=== PATIENT | male | born 1985 | race Caucasian/White ===

== ENCOUNTER 2017-07-10 23:31 | Inpatient (IN) | payer OTHER ==
[~2017-07-10] VITALS: Ht 175.3 cm; Wt 89.3 kg
[~2017-07-10 23:31] MED LIST: ADDERALL20 MG PO; ANTABUSE500 MG PO; PROZAC10 MG PO
[2017-07-11 00:26] LABS: HEMATOCRIT 46.1 % (38.0-50.0); MCH 32.2 PG (29.0-34.0); MCHC 34.9 G/DL (30.0-36.0); MCV 92.2 FL (86-99); PLATELET COUNT 209 K/uL (156-360); RBC DIS.WIDTH-CV 11.9 % (11.8-14.6); RBC DIS.WIDTH-SD 40.1 % (39-53); WHITE BLOOD COUNT 5.3 K/uL (4.1-10.2)
[2017-07-11 00:27] LABS: ADD MIUA? NO; BILIRUBIN NEGATIVE; BLOOD NEGATIVE; COLOR STRAW ((YELLOW)); GLUCOSE (STRIP) NEGATIVE; KETONES NEGATIVE; LEUKOCYTES NEGATIVE; NITRITE NEGATIVE; PROTEIN (STRIP) NEGATIVE; SPECIFIC GRAVITY 1.009 (1.000-1.030); UCUL ADDED? NO; UROBILINOGEN 0.2 MG/DL (0.2-1.0)
[2017-07-11 00:36] LABS: AMPHETAMINE NEGATIVE (500 ng/mL); BARBITURATES NEGATIVE (200 ng/mL); BENZODIAZEPINES NEGATIVE (150 ng/mL); COCAINE NEGATIVE (150 ng/mL); INTERNAL CONTROLS VALID? YES; METHADONE NEGATIVE (200 ng/mL); METHAMPHETAMINE NEGATIVE (500 ng/mL); OPIATES (MORPHINE) NEGATIVE (100 ng/mL); OXYCODONE NEGATIVE (100 ng/mL); PHENCYCLIDINE NEGATIVE (25 ng/mL); PROPOXYPHENE NEGATIVE (300 ng/mL); THC CANNABINOIDS NEGATIVE (50 ng/mL); TRICYCLIC ANTIDEPRESSANTS NEGATIVE (300 ng/mL)
[2017-07-11 00:36] LABS: CHLORIDE 110 mEq/L (99-109); POTASSIUM 4.4 mEq/L (3.7-5.4); SODIUM 143 mEq/L (136-147)
[2017-07-11 00:38] LABS: GLUCOSE 97 mg/dL (70-99)
[2017-07-11 00:39] LABS: ANION GAP 11 MEQ/L (2-14)
[2017-07-11 00:41] LABS: GFR ESTIMATE (CALCULATED) > 59 mL/min/; SERUM ETHYL ALCOHOL 176 mg/dL
[2017-07-11 00:42] LABS: UREA NITROGEN (BUN) 13 mg/dL (9-23)
[2017-07-11 08:15] VITALS: BP 125/68
[2017-07-11 08:17] VITALS: BP 125/68
[2017-07-11 17:57] VITALS: BP 113/56
[2017-07-12 08:06] VITALS: BP 121/60
[2017-07-12 15:46] VITALS: BP 134/79
[2017-07-13 07:38] VITALS: BP 123/58
[2017-07-13] MEDS ORDERED: BUPROPION HCL100 M1 PO (09:05)
== END 2017-07-13 10:38 | disposition home or self-care (01) | DRG 881 ==
LOC: EME 23:31 → EDOF 07-11 05:06 → 1WEST 07-11 05:06 → ENRESERV 07-11 08:10 → 1WEST 07-11 08:10
PROVIDERS: Emergency Medicine
DX: F43.21 Adjustment disorder with depressed mood (principal); F33.2 Major depressive disorder, recurrent severe without psychotic features; R45.851 Suicidal ideations; Z79.899 Other long term (current) drug therapy; Z68.29 Body mass index [BMI] 29.0-29.9, adult
CPT/HCPCS: 80048; 81003; 85027; 90686; 90837; 97150 GO; 99281; 99285; G0480